=== PATIENT | male | born 1995 | race Caucasian/White ===

== ENCOUNTER 2018-04-24 11:57 | Emergency (ER) | payer OTHER ==
[~2018-04-24] VITALS: Ht 177.8 cm; Wt 95.4 kg
[2018-04-24 12:09] VITALS: BP 137/81
== END 2018-04-24 13:38 | disposition home or self-care (01) ==
LOC: ER 11:58
DX: S13.4XXA Sprain of ligaments of cervical spine, initial encounter (principal); R07.9 Chest pain, unspecified; M54.5 Low back pain; V89.2XXA Person injured in unspecified motor-vehicle accident, traffic, initial encounter; Y93.89 Activity, other specified; Y92.488 Other paved roadways as the place of occurrence of the external cause; Y99.8 Other external cause status
CPT/HCPCS: 71045; 93005; 99283